=== PATIENT | female | born 1970 | race Caucasian/White ===

== ENCOUNTER 2020-06-30 00:23 | Emergency (ER) | payer MEDICAID, SELFPAY ==
[2020-06-30] VITALS (7 sets, daily range): BP systolic 106–116; BP diastolic 52–65; PULSE 67–78; RESP 16–18; TEMP 36.4–37.1; O2SAT 95–99; BMI 23.5
--- NOTE | 2020-06-30 01:16 | ED.PSYCH ---
HPI - Psych General Chief Complaint: Psychiatric Symptoms Stated Complaint: SEEKING DETOX Time Seen by Provider: 06/30/20 00:37 Source: patient Mode of arrival: EMS Limitations: no limitations History of Present Illness HPI Narrative: Patient comes to the emergency room complaining of hallucinations and alcohol intoxication. Patient states that for the last 7 years she has been intermittently trying to detox from alcohol. Patient states that sometimes when she tries to detox at home by herself, she has hallucinations. Patient states that today she hallucinated about someone being at her neighbor's house trying to break in. patient states that she wants some help to detox at home. States her father is at home hospice and she has a county bailiff. Patient states that if she gets called regarding her father's health, she needs to leave the hospital. Patient is not suicidal or homicidal. Related Data Allergies Allergy/AdvReac Type Severity Reaction Status Date / Time No Known Allergies Allergy Unverified 04/20/20 15:30 [No Known Allergies*] Review of Systems Review of Systems: Constitutional : No Weight loss, No Fever, No Chills, No Night Sweats, No Fatigue, No Malaise ENT/Mouth : No Hearing loss, No Ear Pain, No Nasal Congestion, No Sinus Pain, No Hoarseness, No sore throat, No Rhinorrhea, No Swallowing Difficulty Eyes: No Eye Pain, No Swelling, No Redness, No Foreign Body, No Discharge, No Vision Changes Cardiovascular : No Chest Pain, No SOB, No Dyspnea on Exertion, No Orthopnea, No Edema, No Palpitations Respiratory : No Cough, No Sputum, No Wheezing, No Smoke Exposure, No Dyspnea Gastrointestinal : No Nausea, No Vomiting, No Diarrhea, No Constipation, No abdominal Pain, No Hematochezia, No Melena Genitourinary : no irregular bleeding, No Dysuria, No Urinary Frequency, No Hematuria, No Urinary Incontinence, No Urgency, No Flank Pain, No Urinary Flow Changes, No Hesitancy Musculoskeletal : No joint pain, No Myalgias, No Joint Swelling Skin : No Skin Lesions, No rash Neuro : No Weakness, No Numbness, No Paresthesias, No Loss of Consciousness, No Dizziness, No Headache Psych : N patient feeling slightly anxious, wanting detox, complaining of visual hallucinations Heme/Lymph: No Bruising, No Bleeding,No Lymphadenopathy Endocrine : No Polyuria, No Polydipsia, No Temperature Intolerance PMFSH Past Medical History Medical History Alcohol abuse Social History Social History Advance Directives: No Advance Directives Information Provided: No Physical Exam Vital Signs: Vital Signs: Last Vital Signs Temp 97.6 F 06/30/20 01:11 Pulse 77 06/30/20 01:11 Resp 16 06/30/20 01:11 BP 109/52 L 06/30/20 01:11 Pulse Ox 99 06/30/20 01:11 Body Mass Index 23.5 Appearance: Alert. Oriented X3. No acute distress. Eyes: Pupils equal, round and reactive to light. ENT: Pharynx normal. Neck: Normal inspection. Neck supple. No lymph nodes noted. No crepitus CVS: Normal heart rate and rhythm. Pulses normal. Normal S1 and S2 Respiratory: No respiratory distress. Breath sounds normal. No Wheezing. No rales Abdomen: Soft and nontender. No rigidity. No distention. good BS x4 Skin: Skin warm and dry. Normal skin color. Normal skin turgor. Extremities: No lower extremity edema. No lower extremity edema. No Lacerations. No Rash Neuro: Oriented X 3. No motor deficit. No sensory deficit. Moving all extermities. No slurred speech. Psych: Patient does not seem to be actively withdrawing from alcohol, normal speech, well-organized speech Course Course Course Narrative: Patient is calm, cooperative. Labs are pending. Once the patient is more sober the care team will talk to the patient. Labs pending, sign-out given to Dr. Gomez. MDM - Psych Restraints Face to Face Assessment: Face to Face Assessment: Current Situation: After assessment of the patient, a review of the pertinent medical record and a discussion with nursing staff, I feel the patient requires a restrain intervention. Reaction To: [] Medical Condition: [] Behavioral State: [] Continued Need: [] Lab Data Labs: Lab Results 06/30/20 Range/Units 01:20 Urine Test NEGATIVE (NEGATIVE) Discharge Plan Discharge Clinical Impression: Alcohol intoxication
[2020-06-30 01:39] LABS: Glucose Urine UA NEG (NEG); Leukocyte Esterase Urine NEG (NEG); Nitrite Urine NEG (NEG); Specific Gravity - Urine <= 1.005 (1.005-1.025); Urine Blood TRACE (NEG); Urine Ketones NEG (NEG); Urine Protein NEG (NEG-TRACE)
[2020-06-30 01:42] LABS: UPreg QC Valid YES; Urine Pregnancy NEGATIVE (NEGATIVE)
[2020-06-30 01:59] LABS: Appearance Urine CLEAR; Color Urine YELLOW
[2020-06-30 02:03] LABS: Bacteria Urine TRACE /LPF; RBC Urine 0-2 /HPF (0); Squamous Epithelial Cell Urine 1+ /LPF; WBC Urine 0 /HPF (0-4)
--- NOTE | 2020-06-30 02:09 | PC.NURSE ---
Patient in bed resting, patient needed two attempts with lab draw but compliant. denied distress at this time. will continue to monitor.
[2020-06-30 02:17] LABS: Basophils Percent Auto 0.6 % (0-2); Eosinophils Absolute Auto 0.1 X10*3/uL (0.0-0.4); Eosinophils Percent Auto 2.5 % (0-4); Hematocrit 32.3 % (37-47); Hemoglobin 11.6 g/dl (12.0-16.0); Imm Gran Abs Auto 0.01 X10*3/uL (0.00-0.03); Imm Gran Pct Auto 0.3 % (0.0-0.4); Lymphocytes Absolute Auto 1.3 X10*3/uL (1.2-4.9); Lymphocytes Percent Auto 38.9 % (20-40); MANUAL DIFF FLAG NO; Mean Corpuscular HGB Conc 35.9 g/dl (31.0-35.0); Mean Corpuscular Hemoglobin 33.9 pg (27.0-33.0); Mean Corpuscular Volume 94.4 fL (80-98); Mean Platelet Volume 12.1 fL (9.4-12.3); Monocytes Absolute Auto 0.3 X10*3/uL (0.1-1.2); Monocytes Percent Auto 9.3 % (2-11); Neutrophils Absolute Auto 1.6 X10*3/uL (2.0-8.3); Neutrophils Percent Auto 48.4 % (45-73); Red Blood Count 3.42 X10*6/uL (4.20-5.50); Red Cell Distribution Width 13.4 % (11.0-16.0); White Blood Count 3.2 X10*3/uL (4.8-10.8)
[2020-06-30 02:21] LABS: Amphetamine Screen Urine Not Detected (Not Detect); Barbiturates, Urine Not Detected (Not Detect); Benzodiazepines Screen Urine Not Detected (Not Detect); Cannabinoid Screen Urine Not Detected (Not Detect); Cocaine Screen Urine Not Detected (Not Detect); Opiate Screen Urine Not Detected (Not Detect); Phencyclidine Screen Urine Not Detected (Not Detect)
--- NOTE | 2020-06-30 02:25 | PC.NURSE ---
[facility] faxed/called/spoke with Michelle/confirmed receipt of referral/awaiting BAL.
[2020-06-30 02:35] LABS: Platelet Count 37 X10*3/uL (160-400)
[2020-06-30 02:46] LABS: Anion Gap 13 (12-20); Blood Urea Nitrogen 15 mg/dL (9-16); Calcium 8.1 mg/dL (8.4-10.2); Carbon Dioxide 26 mmol/L (22-29); Chloride 103 mmol/L (96-108); Creatinine Clr Calc Pharmacy 75.7; Estimated Glomerular Filt Rate > 60; Ethanol 325 mg/dL; Glucose Random 73 mg/dL (60-115); Potassium 2.7 mmol/l (3.3-5.1); Sodium 139 mmol/L (135-145)
--- NOTE | 2020-06-30 03:04 | PC.NURSE ---
Patient K level 2.7, provider notified/ordered to move patient to main ED/Transferred safely to ED 18/RN to RN report completed. patient compliant. will continue to monitor.
[2020-06-30 03:26] LABS: Magnesium 1.3 mg/dL (1.6-2.6)
[2020-06-30] MEDS: Potassium Chloride Packet 20 MEQ PACKET 40 MEQ PO (03:35)
[2020-06-30] MEDS: Potassium Chloride/H20 40 MEQ/100 ML PIGGYBACK 25 MEQ IV (03:35)
--- NOTE | 2020-06-30 03:41 | PC.NURSE ---
ASSUMED CARE OF PT FROM NYASIA ROJAS IN THE BEHAVIORAL POD. PT TO ROOM VIA W/C WITH LOW k+. PT PLACED ON MONITOR WITH NSR AND HR 76. HL PLACED TO RAC. PT MEDICATED PER EMAR. POTASSIUM ON PUMP. CALL GOMEZ AT BEDSIDE, BED IN LOW LOCKED POSITION, SIDE RAILS UP X 2. PT IS VERY ANXIOUS. PT HAVING FREQUENT PANIC ATTACKS WHERE PT WILL START HYPERVENTILATING AND GRUNTING. PT STATES IM ANXIOUS ABOUT EVERYTHING AND I HAVE PANIC ATTACKS ON A DAILY BASIS. PT REASSURE OF HER SAFETY AND PLACED CALL GOMEZ W/I REACH OF PT. PT VERBALIZED UNDERSTANDING AND STATES I WILL TRY TO RELAX AND SLEEP, I HAVEN'T SLEPT IN 4 NIGHTS .
--- NOTE | 2020-06-30 03:51 | PC.NURSE ---
PT IS EXTREMELY ANXIOUS. MD AWARE.
[2020-06-30] MEDS: LORazepam 2 MG/ML VIAL 1 MG IVPUSH (04:02)
--- NOTE | 2020-06-30 04:05 | PC.NURSE ---
PT HYPERVENTILATING AND STATES I CAN FEEL MY ARM BULGING PT STATES I NEED A PILL . MD AWARE OF ANXIETY. MEDICATED PT WITH ATIVAN FOR ANXIETY. WILL CONINUE TO MONITOR PT.
--- NOTE | 2020-06-30 05:32 | PC.NURSE ---
PT SLEEPING IN STRETCHER, WAKES TO VERBAL STIMULI, RESPIRATIONS EASY, N/L. SKIN W/D. PT APPEARS LESS ANXIOUS AFTER GETTING ATIVAN IV. POTASSIUM RUNNING ON PUMP W/O DIFFICULTY. SITE INTACT. PT REMAINS ON MONITOR WITH HR 76.
--- NOTE | 2020-06-30 05:41 | PC.NURSE ---
PT REFUSING A 2ND IV LINE. UNABLE TO HANG THE MAGNESIUM AT THIS TIME. WILL WAIT FOR k+ TO INFUSE FIRST. AWARE.
--- NOTE | 2020-06-30 07:08 | PC.NURSE ---
REPORT TAKEN FROM ISMAEL MURRELL. PT SLEEPING UPON ASSESSMENT. WOKE EASILY TO VOICE. PT HAS POTASSIUM RUNNING THROUGH IV AT THIS TIME. WILL RUN MAG FOR REPLACEMENT ONCE K IS FINISHED. PT BACK TO SLEEP AT THIS TIME. BREAKFAST PROVIDED.
[2020-06-30] MEDS: Magnesium Sulfate/H2O 2 GM/50 ML PIGGYBACK IV (07:28)
--- NOTE | 2020-06-30 09:03 | PC.NURSE ---
SPOKE WITH PT, STATES SHE WANTS DETOX. CARE TEAM NOTIFED.
[2020-06-30 11:10] LABS: Anion Gap 13 (12-20); Blood Urea Nitrogen 12 mg/dL (9-16); Calcium 7.5 mg/dL (8.4-10.2); Carbon Dioxide 24 mmol/L (22-29); Chloride 108 mmol/L (96-108); Creatinine Clr Calc Pharmacy 86.8; Estimated Glomerular Filt Rate > 60; Glucose Random 80 mg/dL (60-115); Potassium 3.5 mmol/l (3.3-5.1); Sodium 141 mmol/L (135-145)
--- NOTE | 2020-06-30 11:39 | MHC.CARE ---
Recovery Support note: Patient is as 50 year old Macanese speaking Female who presented to [facility] via EMS due to visual hallucinations and etoh use. Patient expressed a desire to go to detox. When this specification writer met with patient, patient was difficult to arouse however endorsed a desire to go to detox without a preference on location. [facility] reports they have a female bed and are familiar with this patient. Patient is completing intake with [facility] at this time for a 1545 admission time. This specification writer available to arrange transportation.
--- NOTE | 2020-06-30 11:53 | MHC.CARE ---
Recovery Support note: While completing intake with [facility], patient denied a need to go to detox and reported that she was not interested in going. Patient reported minimal alcohol use and a desire to go back to sleep. RN aware. [place] will hold this bed for a short period of time. Plan to wake patient up in half an hour to determine if she will go to detox as an alternative to going home.
== END 2020-06-30 13:28 | disposition home or self-care (01) ==
PROVIDERS: Emergency Medicine; Physician Assistant Medical; Emergency Provider Emergency Medicine
DX: F10.129 Alcohol abuse with intoxication, unspecified (principal); R44.3 Hallucinations, unspecified; Z71.41 Alcohol abuse counseling and surveillance of alcoholic; Y90.9 Presence of alcohol in blood, level not specified
CPT/HCPCS: 36415; 80048; 80307; 80320; 81001; 81025; 83735; 85025; 96365; 96366; 96375; 99284; 99285; J2060; J3475